=== PATIENT | male | born 1980 | race Caucasian/White ===

== ENCOUNTER 2018-03-13 06:57 | Day surgery (SDC) | payer BC ==
[~2018-03-13] VITALS: Ht 177.8 cm; Wt 81.7 kg
[~2018-03-13 06:57] MED LIST: BUPIVACAINE/PF 0.5% ONE; EPINEPHRINE 1 MG/ML, 1ML ONE
[2018-03-13] MEDS ORDERED: FENTANYL PF 100 MCG/2ML ONE (07:12)
[2018-03-13] MEDS ORDERED: MIDAZOLAM 1 MG/ML, 2ML ONE (07:12)
[2018-03-13 07:18] VITALS: BP 127/81
[2018-03-13] MEDS ORDERED: LACTATED RINGERS 1,000 ML IV SCH (07:24)
[2018-03-13] MEDS ORDERED: KETO10TA PO (07:27)
[2018-03-13] MEDS ORDERED: ROCURONIUM 10MG/ML,5ML ONE (08:46)
[2018-03-13] MEDS ORDERED: DEXAMETHASONE 4 MG/ML, 1ML ONE ×2 (08:46)
[2018-03-13] MEDS ORDERED: PROPOFOL 10 MG/ML, 20ML ONE (08:46)
[2018-03-13] MEDS ORDERED: NEOSTIGMINE 1 MG/ML, 10ML ONE (08:48)
[2018-03-13] MEDS ORDERED: GLYCOPYRROLATE 0.4 MG/2 ML, 2ML ONE (08:48)
[2018-03-13] MEDS ORDERED: ONDANSETRON 2MG/ML, 2ML ONE (08:48)
[2018-03-13] MEDS ORDERED: MEPERIDINE/PF 50 MG/ML ONE (09:26)
== END 2018-03-13 11:20 ==
LOC: OUT 06:57
PROVIDERS: ATTEND Orthopaedic Surgery
DX: S42.032A Displaced fracture of lateral end of left clavicle, initial encounter for closed fracture (principal); M65.812 Other synovitis and tenosynovitis, left shoulder; X58.XXXA Exposure to other specified factors, initial encounter; Y93.89 Activity, other specified; Y92.89 Other specified places as the place of occurrence of the external cause; Y99.8 Other external cause status; Z88.8 Allergy status to other drugs, medicaments and biological substances
CPT/HCPCS: 23515; 29875; 64415; 73000; 76000; C1713; J1100; J2250; J2405; J2704; J2710; J3010; J7120; J0171; J3490